=== PATIENT | male | born 1960 | race Caucasian/White ===

== ENCOUNTER 2020-12-25 09:03 | Outpatient (REF) | payer OTHER, SELFPAY ==
--- NOTE | ~2020-12-25 | XR_ITS ---
EXAMINATION: XR KNEE, RIGHT CLINICAL INFORMATION: Arthralgia COMPARISON: None TECHNIQUE: 2 views of the right knee. FINDINGS: Bone alignment is normal. No fracture or dislocation is seen. There are small osteophytes at the patellofemoral joint. There is an osteophyte at the quadriceps tendon insertion to the patella. There is no joint effusion. There is question of cortical thickening or periosteal reaction of the posterior femoral shaft. This is not completely imaged. Follow-up right femur x-ray recommended. XR/XR knee RT 2V IMPRESSION: Mild arthritis at the patellofemoral joint. Question cortical thickening or periosteal reaction of the posterior femoral shaft. This is only partially imaged on the knee x-ray. Follow-up right femur x-ray recommended.
--- NOTE | ~2020-12-25 | XR_ITS ---
EXAMINATION: XR ELBOW, LEFT CLINICAL INFORMATION: Arthralgia COMPARISON: None TECHNIQUE: AP, lateral, and oblique views of the left elbow. FINDINGS: Bone alignment is normal. No fracture or dislocation is seen. There is a small osteophyte at the coronoid process. Joint spaces are otherwise normal. There is no joint effusion. Soft tissues are unremarkable. XR/XR elbow LT min 3V IMPRESSION: Small osteophyte at the coronoid process otherwise unremarkable exam.
--- NOTE | ~2020-12-25 | XR_ITS ---
EXAMINATION: XR FOOT, RIGHT CLINICAL INFORMATION: Arthralgia COMPARISON: None TECHNIQUE: AP, lateral, and oblique views of the right foot. FINDINGS: Bone alignment is normal. No fracture or dislocation is seen. There is arthrodesis of the first MTP joint with 2 screws. Joint spaces are otherwise normal. There are calcaneal spurs. Soft tissues are otherwise normal. XR/XR foot RT min 3V IMPRESSION: Postsurgical change to the first MTP joint. Calcaneal spurs.
--- NOTE | ~2020-12-25 | XR_ITS ---
EXAMINATION: BILATERAL SHOULDER X-RAY CLINICAL INFORMATION: Arthralgia COMPARISON: None TECHNIQUE: 3 views of each shoulder FINDINGS: Left: Bone alignment is normal. No fracture or dislocation is seen. The glenohumeral joint is normal. There is mild arthritis at the acromioclavicular joint. There is soft tissue calcification adjacent to the left greater tuberosity. Right: None alignment is normal. No fracture or dislocation is seen. The glenohumeral joint is normal. There is mild arthritis at the acromioclavicular joint. There are soft tissue calcifications adjacent to the greater tuberosity. There are surgical clips in the right axilla. XR/XR shoulder LT min 2V IMPRESSION: Bilateral arthritis at the acromioclavicular joints and soft tissue calcifications adjacent to the greater tuberosities suggestive of calcific tendinitis.
--- NOTE | ~2020-12-25 | XR_ITS ---
EXAMINATION: BILATERAL SHOULDER X-RAY CLINICAL INFORMATION: Arthralgia COMPARISON: None TECHNIQUE: 3 views of each shoulder FINDINGS: Left: Bone alignment is normal. No fracture or dislocation is seen. The glenohumeral joint is normal. There is mild arthritis at the acromioclavicular joint. There is soft tissue calcification adjacent to the left greater tuberosity. Right: None alignment is normal. No fracture or dislocation is seen. The glenohumeral joint is normal. There is mild arthritis at the acromioclavicular joint. There are soft tissue calcifications adjacent to the greater tuberosity. There are surgical clips in the right axilla. XR/XR shoulder RT min 2V IMPRESSION: Bilateral arthritis at the acromioclavicular joints and soft tissue calcifications adjacent to the greater tuberosities suggestive of calcific tendinitis.
[2020-12-25 11:23] LABS: MANUAL DIFF FLAG NO
[2020-12-25 11:33] LABS: Glucose Urine UA NEG (NEG); Leukocyte Esterase Urine NEG (NEG); Nitrite Urine NEG (NEG); Specific Gravity - Urine 1.025 (1.005-1.025); Urine Blood NEG (NEG); Urine Ketones NEG (NEG); Urine Protein NEG (NEG-TRACE)
[2020-12-25 11:35] LABS: Appearance Urine CLEAR; Color Urine YELLOW
[2020-12-25 11:46] LABS: Basophils Percent Auto 0.5 % (0-2); Eosinophils Absolute Auto 0.1 X10*3/uL (0.0-0.4); Eosinophils Percent Auto 1.6 % (0-4); Hematocrit 43.5 % (42-52); Hemoglobin 14.9 g/dl (14.0-18.0); Imm Gran Abs Auto 0.03 X10*3/uL (0.00-0.03); Imm Gran Pct Auto 0.5 % (0.0-0.4); Lymphocytes Absolute Auto 1.6 X10*3/uL (1.2-4.9); Lymphocytes Percent Auto 29.2 % (20-40); Mean Corpuscular HGB Conc 34.3 g/dl (31.0-36.0); Mean Corpuscular Volume 87.7 fL (80-98); Mean Platelet Volume 11.9 fL (9.4-12.4); Monocytes Absolute Auto 0.3 X10*3/uL (0.1-1.2); Neutrophils Absolute Auto 3.4 X10*3/uL (2.0-8.3); Neutrophils Percent Auto 62.2 % (45-73); Platelet Count 141 X10*3/uL (160-400); Red Blood Count 4.96 X10*6/uL (4.60-5.80); Red Cell Distribution Width 12.6 % (11.0-16.0); White Blood Count 5.5 X10*3/uL (4.8-10.8)
[2020-12-25 11:59] LABS: RBC Urine 0 /HPF (0); WBC Urine 0-2 /HPF (0-4)
[2020-12-25 12:11] LABS: Alanine Aminotransferase 16 U/L (0-40); Albumin Level 4.3 g/dL (3.5-5.0); Alkaline Phosphatase 84 U/L (39-117); Anion Gap 13 (12-20); Aspartate Amino Transferase 15 U/L (5-37); Bilirubin Total 0.9 mg/dL (0.0-1.0); Blood Urea Nitrogen 15 mg/dL (9-16); C Reactive Protein 0.14 mg/dL (< or = 0.50); Calcium 9.4 mg/dL (8.4-10.2); Carbon Dioxide 29 mmol/L (22-29); Chloride 105 mmol/L (96-108); Cholesterol 153 mg/dL; Estimated Glomerular Filt Rate > 60; Glucose Fasting 103 mg/dL (60-99); HDL Cholesterol 41 mg/dL; LDL Cholesterol Calculated 91 mg/dl; Potassium 4.7 mmol/L (3.3-5.1); Rheumatoid Factor < 15.0 IU/mL (<15.0); Sodium 142 mmol/L (135-145); Triglycerides 107 mg/dL
[2020-12-25 12:21] LABS: Prostate Specific Antigen 2.13 ng/mL (<0.05-4.0); Thyroid Stimulating Hormone 0.92 uIU/mL (0.32-4.0); Vitamin D 25-OH Total 13.7 ng/mL (>30)
[2020-12-25 13:16] LABS: Erythrocyte Sedimentation Rate 4 MM/HR (0-15)
== END 2020-12-25 09:04 | disposition home or self-care (01) ==
LOC: HO.HMGCX 09:03
PROVIDERS: PCP Internal Medicine; Visit Provider Internal Medicine
DX: Z12.5 Encounter for screening for malignant neoplasm of prostate (principal); M25.50 Pain in unspecified joint; E55.9 Vitamin D deficiency, unspecified
CPT/HCPCS: 36415; 73030; 73080; 73560; 73630; 80053; 80061; 81001; 82306; 84153; 84443; 85025; 85652; 86140; 86431

== ENCOUNTER 2021-01-08 09:08 | Outpatient (REF) | payer OTHER, SELFPAY ==
--- NOTE | ~2021-01-08 | XR_ITS ---
EXAMINATION: XR BILATERAL KNEE STANDING XR RIGHT KNEE CLINICAL INFORMATION: Pain. COMPARISON: None. TECHNIQUE: Bilateral AP knees standing. Single sunrise view right knee. FINDINGS: Bilateral AP Knee Standing: There is reduction in the medial and lateral compartment joint space of both knees. There is below-knee amputation left lower extremity. In addition, there is medial distal femoral plate and screws from an old healed distal femoral fracture. Right Knee: Single sunrise view right knee reveals loss of patellofemoral compartment joint space with lateral patellar spurring. The soft tissues are unremarkable. XR/XR knee standing BI IMPRESSION: Mild degenerative changes tricompartment right knee with periarticular spurring in the patellofemoral compartment. Mild degenerative changes medial and lateral compartment left knee. Below-knee amputation left lower extremity. There is left distal femoral medial plate and screws from old healed fracture.
--- NOTE | ~2021-01-08 | XR_ITS ---
EXAMINATION: XR BILATERAL KNEE STANDING XR RIGHT KNEE CLINICAL INFORMATION: Pain. COMPARISON: None. TECHNIQUE: Bilateral AP knees standing. Single sunrise view right knee. FINDINGS: Bilateral AP Knee Standing: There is reduction in the medial and lateral compartment joint space of both knees. There is below-knee amputation left lower extremity. In addition, there is medial distal femoral plate and screws from an old healed distal femoral fracture. Right Knee: Single sunrise view right knee reveals loss of patellofemoral compartment joint space with lateral patellar spurring. The soft tissues are unremarkable. XR/XR knee RT 2V IMPRESSION: Mild degenerative changes tricompartment right knee with periarticular spurring in the patellofemoral compartment. Mild degenerative changes medial and lateral compartment left knee. Below-knee amputation left lower extremity. There is left distal femoral medial plate and screws from old healed fracture.
== END 2021-01-08 09:09 | disposition home or self-care (01) ==
LOC: HO.HOSX 09:08
PROVIDERS: Visit Provider Physician Assistant
DX: M17.11 Unilateral primary osteoarthritis, right knee (principal)
CPT/HCPCS: 20610; 73560; 73565; J1100

== ENCOUNTER 2021-05-11 07:11 | Day surgery (SDC) | payer OTHER, SELFPAY ==
--- NOTE | 2021-05-10 13:06 | P.CONAN_ITS ---
Documented by User: Karyn Benavides NP 05/10/21 13:06 HPI - Anesthesia Eval Consult details Narrative: 60yo M for Colonoscopy [facility], [facility] Active Problems Active Problems: All Active Problems (Updated 05/03/21 @ 15:27 by Ambar Abrams, RAMESH) Knee pain (Acute) Patellofemoral arthritis of right knee (Acute) Past Medical History Medical History (Updated 05/03/21 @ 15:27 by Ambar Abrams, RN) History of cancer History of kidney stones History of left below knee amputation Lumbar disc disease Melanoma Vitamin D deficiency Surgical History Surgical History (Updated 05/03/21 @ 15:30 by Ambar Abrams RN) H/O cervical spine surgery History of lumbar discectomy History of vasectomy Hx of colonoscopy Social History Social History (Updated 05/10/21 @ 07:35 by Ricardo Cline RN) Alcohol intake: current Alcohol intake frequency: holidays/special occasions only Patient Tobacco Use Status: Never used Tobacco Second Hand Smoke Exposure: No Use of substances other than those prescribed or required for medical reasons: No Are you DNR?: No Advance Directives: No Advance Directives Information Provided: Yes Advance Directives on File: No Current occupational status: employed Current occupation: right handed Meds Allergies Allergy/AdvReac Type Severity Reaction Status Date / Time No Known Allergies Allergy Unverified 01/08/21 10:25 Home Medications Medication Instructions Recorded Confirmed Last Taken Type albuterol sulfate 90 mcg/actuation 1 puff INHALATION Q4-6H PRN 05/03/21 05/03/21 Unknown History aerosol inhaler cholecalciferol (vitamin D3) 50 1 cap PO DAILY 05/03/21 05/03/21 Unknown History mcg (2,000 unit) capsule Exam Exam Date and Time: May 10, 2021 1306 Assessment and Plan Assessment Anesthesia Assessment: Chart Reviewed Documented by User: Bradley Jorge MD 05/11/21 08:22 [facility] Past Medical History Medical History (Updated 05/03/21 @ 15:27 by Ambar Abrams RN) History of cancer History of kidney stones History of left below knee amputation Lumbar disc disease Melanoma Vitamin D deficiency Family History Family history of problems with anesthesia: No Surgical History Surgical History (Updated 05/03/21 @ 15:30 by Ambar Abrams RN) H/O cervical spine surgery History of lumbar discectomy History of vasectomy Hx of colonoscopy History of Problems with Anesthesia: No Social History Social History (Updated 05/10/21 @ 07:35 by Ricardo Cline RN) Alcohol intake: current Alcohol intake frequency: holidays/special occasions only Patient Tobacco Use Status: Never used Tobacco Second Hand Smoke Exposure: No Use of substances other than those prescribed or required for medical reasons: No Are you DNR?: No Advance Directives: No Advance Directives Information Provided: Yes Advance Directives on File: No Current occupational status: employed Current occupation: right handed Meds Allergies Allergy/AdvReac Type Severity Reaction Status Date / Time No Known Allergies Allergy Unverified 01/08/21 10:25 Home Medications Medication Instructions Recorded Confirmed Last Taken Type albuterol sulfate 90 mcg/actuation 1 puff INHALATION Q4-6H PRN 05/03/21 05/03/21 Unknown History aerosol inhaler cholecalciferol (vitamin D3) 50 1 cap PO DAILY 05/03/21 05/03/21 Unknown History mcg (2,000 unit) capsule Exam Airway Mallampati Class: III TM Dist: >3cm Neck ROM: Full Loose/Missing/Broken Teeth: No Heart: [id number] Lungs: cta b/l Assessment and Plan Assessment Anesthesia Assessment: Anesthesia Plan Discussed and PAT Visit Final Anesthetic Review Family History of Problems with Anesthesia: No History of Problems with Anesthesia: No NPO: Yes ASA Class: II Final Preanesthetic Review: No Changes in Pt Med Stat, Meds/Allgs Chart Reviewed, Consent Obtained/Reviewed and Anes Risks/Benef Reviewed Patient Risk: Intermediate Procedure Risk: Low Assessment/Block/Sedation in SS: Assess/Block/Sedation-SS Anesthetic Plan Anesthetic Plan: MAC: and Agree w/ Assess. and Plan Disposition: Standard PACU
[2021-05-11 07:33] VITALS: BMI 26.3
[2021-05-11 07:50] VITALS: BP 154/94; PULSE 75; RESP 16; TEMP 36.4; O2SAT 97
[2021-05-11] MEDS: Lactated Ringers 1,000 ML 100 ML IVCONT (07:52)
--- NOTE | 2021-05-11 08:32 | MHC.SHP ---
Pre-Procedural Eval Section A Date of Service: 05/11/21 The patient is an INPATIENT: No Changes since office visit: No Cold of Flu in the past 2 weeks, No New Medical Problems, No Changes in Medication and No Patient answered all questions The History & Physical has been completed within 30 days and I have reviewed it.: Yes Section B Chief Complaint: screening Allergies: Allergies Allergy/AdvReac Type Severity Reaction Status Date / Time No Known Allergies Allergy Unverified 01/08/21 10:25 Plan I have reviewed the history and physical and performed a pertinent physical examination on my patient. No changes have occurred unless specified.
[2021-05-11 09:01] VITALS: BP 109/65; PULSE 70; RESP 16; TEMP 36.4; O2SAT 95
--- NOTE | 2021-05-11 09:06 | PM.OP ---
Brief Operative Note Date of Service: 05/11/21 Pre-op diagnosis: screening Post-op diagnosis: same (colon polyp) Procedure: colonoscopy Surgeon: Jim Villegas Anesthesia: MAC Was an Kick Plate Installer used for this Procedure?: No Estimated blood loss (mL): 2 Pathology: other (ppolyp 80cm) Condition: stable Disposition: PACU
[2021-05-11 09:16] VITALS: BP 108/75; PULSE 63; RESP 18; O2SAT 96
[2021-05-11 09:31] VITALS: BP 128/87; PULSE 69; RESP 18; TEMP 36.4; O2SAT 99
--- NOTE | 2021-05-11 09:34 | OP_ITS ---
SURGEON: Jim Villegas MD INDICATIONS: Colon cancer screening and prior history of tubular adenomas. PREOPERATIVE DIAGNOSIS: POSTOPERATIVE DIAGNOSIS: PROCEDURE PERFORMED: Colonoscopy to the terminal ileum with snare polypectomy and biopsy. ESTIMATED BLOOD LOSS: COMPLICATIONS: ANESTHESIA: ASSISTANTS: SPECIMENS: MEDICATIONS: Monitored anesthesia care. DESCRIPTION OF PROCEDURE: History and physical performed. The risks and benefits of the procedure were explained to the patient. Informed consent was obtained. The patient was placed in the left lateral decubitus position. A digital rectal exam was performed and was found to be normal. The Olympus pediatric video colonoscope was introduced into the rectum and advanced to the cecum without difficulty. The cecum was identified by transillumination, palpation, and identification of the ileocecal valve. Examination was performed and the scope was removed. He tolerated the procedure well and was taken to recovery area in stable condition. FINDINGS: The terminal ileum was examined and appeared normal. The visualized colonic mucosa was normal. The quality of the prep was good. At 80 cm from the anal verge, was a 6 mm polyp, which was removed with a cold snare and biopsy forceps. No other polyps were identified. The retroflexed examination showed internal hemorrhoids. IMPRESSION: Colon polyp. RECOMMENDATION: Follow up the biopsy results. MD NEELIMA Urbina/CARMELL / [id number]
== END 2021-05-11 09:53 | disposition home or self-care (01) ==
PROVIDERS: PCP Internal Medicine; Visit Provider Internal Medicine Gastroenterology
PROC: 0DJD8ZZ Inspection of Lower Intestinal Tract, Via Natural or Artificial Opening Endoscopic (ICD-10-PCS; CPT 45378; principal; 2021-05-11 08:30)
DX: Z12.11 Encounter for screening for malignant neoplasm of colon (principal); D12.6 Benign neoplasm of colon, unspecified; K64.8 Other hemorrhoids; Z86.010 Personal history of colon polyps
CPT/HCPCS: 45385; 88305

== ENCOUNTER 2023-01-09 07:47 | Outpatient (REF) | payer OTHER, SELFPAY ==
[2023-01-09 11:23] LABS: MANUAL DIFF FLAG NO
[2023-01-09 11:38] LABS: Basophils Percent Auto 0.4 % (0-2); Eosinophils Absolute Auto 0.1 X10*3/uL (0.0-0.4); Eosinophils Percent Auto 1.8 % (0-4); Hematocrit 44.3 % (42.0-52.0); Hemoglobin 15.5 g/dl (14.0-18.0); Imm Gran Abs Auto 0.04 X10*3/uL (0.00-0.03); Imm Gran Pct Auto 0.7 % (0.0-0.4); Lymphocytes Absolute Auto 1.7 X10*3/uL (1.2-4.9); Lymphocytes Percent Auto 30.8 % (20-40); Mean Corpuscular Hemoglobin 30.3 pg (27.0-33.0); Mean Corpuscular Volume 86.5 fL (80.0-98.0); Mean Platelet Volume 11.6 fL (9.4-12.4); Monocytes Absolute Auto 0.4 X10*3/uL (0.1-1.2); Monocytes Percent Auto 7.1 % (2-11); Neutrophils Absolute Auto 3.3 x10*3/uL (2.0-8.3); Neutrophils Percent Auto 59.2 % (45-73); Platelet Count 146 X10*3/uL (160-400); Red Blood Count 5.12 X10*6/uL (4.60-5.80); Red Cell Distribution Width 12.9 % (11.0-16.0); White Blood Count 5.5 X10*3/uL (4.8-10.8)
[2023-01-09 12:10] LABS: Alanine Aminotransferase 15 U/L (0-40); Albumin Level 4.2 g/dL (3.5-5.0); Alkaline Phosphatase 78 U/L (39-117); Anion Gap 9 (12-20); Aspartate Amino Transferase 14 U/L (5-37); Bilirubin Total 1.3 mg/dL (0.0-1.0); Blood Urea Nitrogen 18 mg/dL (9-16); Calcium 9.2 mg/dL (8.4-10.2); Carbon Dioxide 29 mmol/L (22-29); Chloride 106 mmol/L (96-108); Cholesterol 152 mg/dL; Estimated Glomerular Filt Rate > 60; Glucose Fasting 106 mg/dL (60-99); HDL Cholesterol 41 mg/dL; LDL Cholesterol Calculated 89 mg/dl; Potassium 4.4 mmol/L (3.3-5.1); Sodium 140 mmol/L (135-145); Total Protein 6.8 g/dL (6.5-8.0); Triglycerides 114 mg/dL
[2023-01-09 12:29] LABS: PSA,Total (Free>4and<10) 2.36 ng/mL (0.00-4.00); Vitamin D 25-OH Total 20.8 ng/mL (>30)
== END 2023-01-09 07:48 | disposition home or self-care (01) ==
LOC: HO.HMGCLDS 07:47
PROVIDERS: PCP Internal Medicine; Visit Provider Internal Medicine
DX: Z00.00 Encounter for general adult medical examination without abnormal findings (principal); Z12.5 Encounter for screening for malignant neoplasm of prostate; S88.112D Complete traumatic amputation at level between knee and ankle, left lower leg, subsequent encounter; E55.9 Vitamin D deficiency, unspecified; G54.6 Phantom limb syndrome with pain
CPT/HCPCS: 36415; 80053; 80061; 82306; 84153; 84443; 85025

== ENCOUNTER 2023-10-06 14:22 | Outpatient (AMB) | payer OTHER, SELFPAY ==
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
[2023-10-06 14:36] VITALS: BP 132/82; PULSE 80; RESP 16; O2SAT 96; BMI 28.5
== END 2023-10-06 15:00 | disposition home or self-care (01) ==
PROVIDERS: PCP Internal Medicine; Visit Provider Anesthesiology
DX: G54.6 Phantom limb syndrome with pain (principal); G89.4 Chronic pain syndrome
CPT/HCPCS: 99203

== ENCOUNTER → 2023-10-06 14:22 | Outpatient (BNVA) | payer OTHER, SELFPAY | PROVIDERS: PCP Internal Medicine; Visit Provider Anesthesiology ==

== ENCOUNTER 2023-12-10 11:45 | Outpatient (AMB) | payer OTHER, SELFPAY ==
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
[2023-12-10 12:03] VITALS: BP 138/88; PULSE 82; RESP 18; O2SAT 96; BMI 28.8
== END 2023-12-10 12:08 | disposition home or self-care (01) ==
PROVIDERS: PCP Internal Medicine; Visit Provider Anesthesiology
DX: G54.6 Phantom limb syndrome with pain (principal); G89.4 Chronic pain syndrome
CPT/HCPCS: 99213

== ENCOUNTER → 2023-12-10 11:45 | Outpatient (BNVA) | payer OTHER, SELFPAY | PROVIDERS: PCP Internal Medicine; Visit Provider Anesthesiology ==

== ENCOUNTER → 2024-02-05 12:52 | Outpatient (BNVA) | payer OTHER, SELFPAY | PROVIDERS: PCP Internal Medicine; Visit Provider Orthopaedic Surgery ==

== ENCOUNTER 2024-06-28 07:15 | Outpatient (REF) | payer OTHER, SELFPAY ==
[2024-06-28 10:00] LABS: MANUAL DIFF FLAG NO
[2024-06-28 10:06] LABS: Appearance Urine Turbid; Color Urine Yellow; Glucose Urine UA Negative (Negative); Leukocyte Esterase Urine Negative (Negative); Nitrite Urine Negative (Negative); PH 5.5 (5.0-9.0); Specific Gravity - Urine >= 1.030 (1.005-1.025); Urine Blood Negative (Negative); Urine Ketones Negative (Negative); Urine Protein Trace mg/dL (Neg-Trace)
[2024-06-28 10:11] LABS: Basophils Percent Auto 0.7 % (0-2); Eosinophils Absolute Auto 0.1 X10*3/uL (0.0-0.4); Eosinophils Percent Auto 1.6 % (0-4); Hematocrit 44.2 % (42.0-52.0); Hemoglobin 15.5 g/dl (14.0-18.0); Imm Gran Abs Auto 0.06 X10*3/uL (0.00-0.03); Imm Gran Pct Auto 1.1 % (0.0-0.4); Lymphocytes Absolute Auto 1.5 X10*3/uL (1.2-4.9); Lymphocytes Percent Auto 27.5 % (20-40); Mean Corpuscular HGB Conc 35.1 g/dl (31.0-36.0); Mean Corpuscular Hemoglobin 30.6 pg (27.0-33.0); Mean Corpuscular Volume 87.4 fL (80.0-98.0); Mean Platelet Volume 11.9 fL (9.4-12.4); Monocytes Absolute Auto 0.4 X10*3/uL (0.1-1.2); Monocytes Percent Auto 6.6 % (2-11); Neutrophils Absolute Auto 3.5 x10*3/uL (2.0-8.3); Neutrophils Percent Auto 62.5 % (45-73); Platelet Count 140 X10*3/uL (160-400); Red Blood Count 5.06 X10*6/uL (4.60-5.80); Red Cell Distribution Width 13.2 % (11.0-16.0); White Blood Count 5.6 X10*3/uL (4.8-10.8)
[2024-06-28 10:12] LABS: Bacteria Urine None Seen (None Seen); Hyaline Casts Urine 0-2 /LPF (0-2); RBC Urine 0-2 /HPF (0-2); Squamous Epithelial Cell Urine 0-2 /HPF (0-2); WBC Urine 0-5 /HPF (0-5)
[2024-06-28 10:29] LABS: Alanine Aminotransferase 16 U/L (0-40); Albumin Level 4.2 g/dL (3.5-5.0); Alkaline Phosphatase 81 U/L (39-117); Anion Gap 9 (12-20); Aspartate Amino Transferase 20 U/L (5-37); Bilirubin Total 0.9 mg/dL (0.0-1.0); Blood Urea Nitrogen 15 mg/dL (9-16); Calcium 9.1 mg/dL (8.4-10.2); Carbon Dioxide 29 mmol/L (22-29); Chloride 106 mmol/L (96-108); Cholesterol 155 mg/dL (<200); Estimated Glomerular Filt Rate > 60; Glucose Fasting 109 mg/dL (60-99); HDL Cholesterol 43 mg/dL (>40); LDL Cholesterol Calculated 92 mg/dL (<100); Potassium 4.1 mmol/L (3.3-5.1); Sodium 140 mmol/L (135-145); Triglycerides 102 mg/dL (<150)
[2024-06-28 10:40] LABS: PSA,Total (Free>4and<10) 2.36 ng/mL (0.00-4.00)
[2024-06-28 10:45] LABS: Thyroid Stimulating Hormone 1.71 uIU/mL (0.32-4.0); Vitamin D 25-OH Total 30.1 ng/mL (>30)
== END 2024-06-28 07:16 | disposition home or self-care (01) ==
LOC: HO.HMGCLDS 07:15
PROVIDERS: PCP Internal Medicine; Visit Provider Internal Medicine
DX: Z00.00 Encounter for general adult medical examination without abnormal findings (principal); S88.112D Complete traumatic amputation at level between knee and ankle, left lower leg, subsequent encounter; G54.6 Phantom limb syndrome with pain; E55.9 Vitamin D deficiency, unspecified; Z12.5 Encounter for screening for malignant neoplasm of prostate
CPT/HCPCS: 36415; 80053; 80061; 81001; 82306; 84153; 84443; 85025

== ENCOUNTER 2024-10-16 08:38 | Outpatient (REF) | payer OTHER, SELFPAY ==
--- NOTE | ~2024-10-16 | XR_ITS ---
EXAMINATION: XR CHEST CLINICAL INFORMATION: R05.9 - Cough, unspecified COMPARISON: None available. TECHNIQUE: 2 views of the chest were obtained. FINDINGS: Pulmonary reticular pattern. Prominence of the interstitial lung markings. No pleural effusion. No pneumothorax. No hyperinflation. Cardiomediastinal silhouette size is normal. Multilevel thoracic spondylosis. Degenerative changes in the shoulders. XR/XR chest 2V IMPRESSION: Concerning acute small airway inflammatory disease in the correct clinical settings. Electronically signed by: Jon Stevens MD 10/19/2024 09:28 AM EST
[2024-10-16 09:52] LABS: Influenza A PCR POSITIVE (Negative); Influenza B PCR NEGATIVE (Negative); Resp Syncy Virus RNA Qual PCR NEGATIVE (Negative); SARS COV2 PCR INHOUSE NEGATIVE (Negative)
== END 2024-10-16 08:39 | disposition home or self-care (01) ==
LOC: HO.XRAY 08:38
PROVIDERS: PCP Internal Medicine; Visit Provider Physician Assistant Medical
DX: R05.9 Cough, unspecified (principal); J06.9 Acute upper respiratory infection, unspecified
CPT/HCPCS: 0241U; 71046

== ENCOUNTER → 2024-10-16 08:48 | Outpatient (BNV) | payer OTHER, SELFPAY | PROVIDERS: PCP Internal Medicine; Visit Provider Radiology Diagnostic Radiology | DX: R05.9 Cough, unspecified (principal) | CPT/HCPCS: 71046 ==

== ENCOUNTER 2024-10-26 13:22 | Outpatient (AMB) | payer OTHER, SELFPAY ==
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
[2024-10-26 13:39] VITALS: BP 152/72; PULSE 77; TEMP 36.2; O2SAT 97; BMI 29.2
--- OUTSIDE RECORDS SUMMARY | 2024-10-26 16:25 | XMS_ITS ---
Author Organization Ignacio Figueroa DO [facility] Address [address], [place] [id number] Care Team Providers Care Electromatic Typist Name Role Phone Ignacio Figueroa Primary Care Provider [phone] REASON FOR VISIT Message MEDICATIONS Medication SIG (Take, Route, Frequency, Duration) Notes Start Date End Date Status HYDROcodone-Acetaminophen 5-325 MG 1 tablet as needed Orally every 4 hrs for 10 days 07/28/2024 Active Encounters Encounter Location Date Provider Diagnosis Ignacio Figueroa DO, [address] [phone] 07/28/2024 Ignacio Figueroa Phantom pain G54.6 ASSESSMENTS Encounter Date Diagnosis Assessment Notes Treatment Notes Treatment Clinical Notes 07/28/2024 Phantom pain (ICD-10 - G54.6) PLAN OF TREATMENT Medication Medication Name Sig Start Date Stop Date Notes HYDROcodone-Acetaminophen 5- 325 MG 1 tablet as needed Orally every 4 hrs for 10 days 07/28/2024
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
--- OUTSIDE RECORDS SUMMARY | 2024-10-26 16:25 | XMS_ITS ---
Author Organization Ignacio Figueroa DO [facility] Address [address], [place] [id number] Care Team Providers Care Mechanical Adjuster Name Role Phone Ignacio Figueroa Primary Care Provider [phone] REASON FOR VISIT Refills MEDICATIONS Medication SIG (Take, Route, Frequency, Duration) Notes Start Date End Date Status Gabapentin 300 MG 2 capsules as needed Orally Twice a day for 30 days 01/15/2023 Active HYDROcodone-Acetaminophen 5-300 MG 1 tablet as needed Orally every 4 hrs for 3 days 05/25/2024 Active Encounters Encounter Location Date Provider Diagnosis Ignacio Figueroa DO, [address] [id number] 05/25/2024 Ignacio Figueroa Phantom pain G54.6 ASSESSMENTS Encounter Date Diagnosis Assessment Notes Treatment Notes Treatment Clinical Notes 05/25/2024 Phantom pain (ICD-10 - G54.6) PLAN OF TREATMENT Medication Medication Name Sig Start Date Stop Date Notes Gabapentin 300 MG 2 capsules as needed Orally Twice a day for 30 days 01/15/2023 HYDROcodone-Acetaminophen 5-300 MG 1 tablet as needed Orally every 4 hrs for 3 days 05/25/2024
== END 2024-10-26 13:59 | disposition home or self-care (01) ==
LOC: HO.HMCSH 13:22
PROVIDERS: PCP Internal Medicine; Visit Provider Internal Medicine
DX: G54.6 Phantom limb syndrome with pain (principal); I10 Essential (primary) hypertension; J06.9 Acute upper respiratory infection, unspecified

== ENCOUNTER → 2024-10-26 13:22 | Outpatient (BNVA) | payer OTHER, SELFPAY | PROVIDERS: PCP Internal Medicine; Visit Provider Internal Medicine ==

== ENCOUNTER 2024-11-11 09:09 | Outpatient (REF) | payer OTHER, SELFPAY ==
[2024-11-11 10:13] LABS: Appearance Urine Clear; Color Urine Yellow; Glucose Urine UA Negative (Negative); Leukocyte Esterase Urine Negative (Negative); Nitrite Urine Negative (Negative); Urine Blood Negative (Negative); Urine Ketones Negative (Negative); Urine Protein Negative (Neg-Trace)
[2024-11-11 10:15] LABS: Hematocrit 40.6 % (42.0-52.0); Hemoglobin 14.3 g/dl (14.0-18.0); Mean Corpuscular HGB Conc 35.2 g/dl (31.0-36.0); Mean Corpuscular Hemoglobin 30.3 pg (27.0-33.0); Mean Platelet Volume 11.1 fL (9.4-12.4); Platelet Count 128 X10*3/uL (160-400); Red Blood Count 4.72 X10*6/uL (4.60-5.80); Red Cell Distribution Width 13.2 % (11.0-16.0); White Blood Count 5.9 X10*3/uL (4.8-10.8)
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
[2024-11-11 10:41] LABS: Alanine Aminotransferase 26 U/L (0-40); Albumin Level 3.8 g/dL (3.5-5.0); Alkaline Phosphatase 75 U/L (39-117); Anion Gap 9 (12-20); Aspartate Amino Transferase 22 U/L (5-37); Bilirubin Direct 0.2 mg/dL (0.0-0.5); Bilirubin Total 0.7 mg/dL (0.0-1.0); Blood Urea Nitrogen 15 mg/dL (9-16); Calcium 8.6 mg/dL (8.4-10.2); Carbon Dioxide 27 mmol/L (22-29); Chloride 109 mmol/L (96-108); Cholesterol 169 mg/dL (<200); Estimated Glomerular Filt Rate > 60; Glucose Random 100 mg/dL (60-115); HDL Cholesterol 44 mg/dL (>40); LDL Cholesterol Calculated 98 mg/dL (<100); Sodium 141 mmol/L (135-145); Total Protein 6.9 g/dL (6.5-8.0); Triglycerides 138 mg/dL (<150)
[2024-11-11 10:45] LABS: Thyroid Stimulating Hormone 1.84 uIU/mL (0.32-4.0)
[2024-11-11 10:57] LABS: Prostate Specific Antigen Scr 2.68 ng/mL (<0.05-4.0)
== END 2024-11-11 09:10 | disposition home or self-care (01) ==
LOC: HO.HMGCLDS 09:09
PROVIDERS: PCP Internal Medicine; Visit Provider Internal Medicine
DX: Z12.5 Encounter for screening for malignant neoplasm of prostate (principal); I10 Essential (primary) hypertension
CPT/HCPCS: 36415; 80048; 80061; 80076; 81003; 84153; 84443; 85027

== ENCOUNTER 2024-11-17 09:58 | Outpatient (AMB) | payer OTHER, SELFPAY ==
--- NOTE | 2024-11-17 09:58 | MHC.PC.OV ---
Vital Signs 11/17/24 10:05 Height 6 ft 0.25 in Weight 225 lb BMI 30.3 BP 132/62 Blood Pressure Location Rt brachial Pulse 70 Pulse Source Pulse Oximeter Temp 97.0 F Pulse Oximetry (%) 96 Intake Visit Reasons: follow up Intake Note: would like to discuss PSA Allergies No Known Allergies Allergy (Verified 11/17/24 10:33) Medication List - Last Reconciled 11/17/24 by Charisma Amor PA-C albuterol sulfate 90 mcg/actuation 1 puff inhalation Q4-6H PRN cholecalciferol (vitamin D3) 1 cap PO DAILY hydrocodone-acetaminophen 5-300 mg 1 tab PO BID PRN 30 days PFSH Medical History (Updated 11/17/24 @ 10:38 by Charisma Amor PA-C) Temporary high blood pressure Cough Vitamin D deficiency History of kidney stones Lumbar disc disease Melanoma History of cancer Surgical History History of left below knee amputation History of lumbar discectomy History of vasectomy Hx of colonoscopy H/O cervical spine surgery Social History Alcohol intake: current Alcohol intake frequency: holidays/special occasions only Patient Tobacco Use Status: Never used Tobacco Second Hand Smoke Exposure: No Current occupational status: employed Current occupation: right handed Physical exam (Primary Care) Vital Signs: Last Vital Signs Temp 97.0 F 11/17/24 10:05 Pulse 70 11/17/24 10:05 BP 132/62 11/17/24 10:05 Pulse Ox 96 11/17/24 10:05 Care Plan Goal for BP management: <130/80 at goal BMI result Body Mass Index 30.3 BMI Assessment/Plan discussion: High BMI High, discussed plan: lifestyle, weight reduction, dietary, physical activity and alcohol moderation Tobacco/Smoking Status: Tobacco use Status Patient Tobacco Use Status Never used Tobacco 11/17/24 10:08 Coding Level of Care Code Est Pt Level 4 (70669) Complex EM visit Add On G2211 Diagnoses Temporary high blood pressure R03.0 Assessment & Plan Assessment & Plan (1) Temporary high blood pressure: Code(s): R03.0 - Elevated blood-pressure reading, without diagnosis of hypertension Category: Medical Plan: Blood pressures normalized today. Blood pressure was elevated due to sickness. Patient does not need to be started on blood pressure medication at this time. Patient to monitor his blood pressure and return in 6 months. Condition is stable continue to monitor Plan Plan Patient was informed and verbally consented to the use of an ambient scribe for clinic note documentation during this visit. 1. High blood pressure reading at prior visit Patient's blood pressure has normalized now that he no longer has influenza or post influenza virus. Patient will continue monitoring his blood pressure and return in 6 months for six-month follow-up. Regular monitoring and a follow-up in six months, with preparatory blood work ordered beforehand, are advised to ensure effective management. Discussion Notes During the consultation, the discussion centered around the patient's progress in managing high blood pressure reading, which had been exacerbated by an acute illness. It was acknowledged that the blood pressure had normalized since recovering from the illness. All relevant blood work was reviewed, showing normal results, and cholesterol levels remain well-controlled. I advised planning a follow-up visit in six months and suggested calling ahead for blood work orders. The patient expressed understanding of the condition and treatment plan and agreed to the future schedule for monitoring. Patient Instructions: Patient Instructions - Schedule follow-up appointment in six months. - Contact us for a blood work order before the follow-up appointment. - Monitor blood pressure regularly at home. - Maintain a healthy lifestyle and dietary habits to support blood pressure management and cholesterol levels. - Seek medical care if you experience any symptoms related to high blood pressure or any new health concerns. Scribe Plan - Not visible on output: History of Present Illness The patient is a 64-year-old male presenting with follow-up for blood pressure check. Reports 2 weeks ago he was diagnosed with the influenza and was not feeling well and his blood pressure was noted to be elevated at that time. He was sent home with prednisone and [id number]-[id number] medication. He reports he is feeling much better. He is presenting today for blood pressure check. He denies any recent fevers, dizziness, headaches, chest pain or shortness of breath or any other symptoms related to this. His blood pressure is normal at this time at 132/62. Diagnostic workups, including blood tests, have returned normal results, and the patient's cholesterol levels are well-managed. There has been no indication of persistent elevation in blood pressure post-recovery from the acute illness, and the patient remains under regular monitoring for hypertension. Physical Exam Appearance: Alert. Oriented X3. No acute distress. Head: Normal external exam. Normocephalic. Atraumatic. Eyes: Pupils are equal, round, and reactive to light. Extraocular movements intact. Conjunctiva and sclera normal. Eyelids normal. Throat: Pharynx normal. Uvula midline. Moist mucous membranes. Neck: Normal inspection. Neck supple. Full range of motion. Cardiovascular: Normal heart rate and rhythm. Respiratory: No respiratory distress. Painless inspiration. Back: Full range of motion noted. Skin: Skin warm and dry. Normal skin color. Normal skin turgor. No rashes/lesions/lacerations noted. Extremities:Extremities exhibit normal range of motion. Neuro: Oriented X 3. No motor deficit. No sensory deficit. Reflexes normal. Results - Labs: Blood work reported to be normal
[2024-11-17 10:05] VITALS: BP 132/62; PULSE 70; TEMP 36.1; O2SAT 96; BMI 30.3
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
== END 2024-11-17 10:34 | disposition home or self-care (01) ==
LOC: HO.HMCSH 09:58
PROVIDERS: PCP Internal Medicine; Visit Provider Physician Assistant Medical
DX: R03.0 Elevated blood-pressure reading, without diagnosis of hypertension (principal)

== ENCOUNTER → 2024-11-17 09:58 | Outpatient (BNVA) | payer OTHER, SELFPAY | PROVIDERS: PCP Internal Medicine; Visit Provider Physician Assistant Medical ==

== ENCOUNTER 2025-05-31 09:57 | Outpatient (AMB) | payer OTHER, SELFPAY ==
[2025-05-31 10:01] VITALS: BP 144/80; PULSE 74; RESP 16; TEMP 36.6; O2SAT 94; BMI 30.2
--- NOTE | 2025-05-31 10:01 | A.OFFPC_ITS ---
Vital Signs 05/31/25 10:01 Height 6 ft 0.25 in Weight 224 lb BMI 30.2 BP 144/80 H Respiration 16 Pulse 74 Pulse Source Pulse Oximeter Temp 97.8 F Temp Source Temporal Artery Scan Pulse Oximetry (%) 94 Oxygen Delivery Method Room Air Intake Visit Reasons: question hernia [employer] Room Service Supervisor Required: No Accompanied by: Self / Same As Patient Allergies No Known Allergies Allergy (Verified 05/31/25 10:02) Tobacco use date assessed: 05/31/25 Fall risk assessment: No Falls in past year Last assessed Fall Risk: 05/31/25 Dental Screening Dental Screen Date: 05/31/25 Did you have a dental visit in the last 12 months?: Yes Did you have a dental problem in the last 6 months where you did not have access to dental care?: No Was dental information given to patient?: Patient has dentist [facility] Medical History Temporary high blood pressure Cough Vitamin D deficiency History of kidney stones Lumbar disc disease Melanoma History of cancer Surgical History History of left below knee amputation History of lumbar discectomy History of vasectomy Hx of colonoscopy (~05/11/21) H/O cervical spine surgery Family History (Updated 05/31/25 @ 10:12 by WILLIS Guerrero) Father Prostate cancer Mother BP (high blood pressure) Social History (Updated 05/31/25 @ 10:13 by WILLIS Guerrero) Housing: House Alcohol intake: current Alcohol intake frequency: a few times a week Patient Tobacco Use Status: Never used Tobacco Second Hand Smoke Exposure: No service: No Current occupational status: employed Cognitive needs: No Hearing needs: No Vision needs: Yes (reading glasses) Questionnaire PHQ-9 Over the last 2 weeks, how often have you been bothered by any of the following problems? 1. Little interest or pleasure in doing things: not at all 2. Feeling down, depressed, or hopeless: not at all 3. Trouble falling or staying asleep, or sleeping too much: not at all 4. Feeling tired or having little energy: not at all 5. Poor appetite or overeating: not at all 6. Feeling bad about yourself - or that you are a failure or have let yourself or your family down: not at all 7. Trouble concentrating on things, such as reading the newspaper or watching television: not at all 8. Moving or speaking so slowly that other people could have noticed. Or the opposite - being so fidgety or restless that you have been moving around a lot more than usual: not at all 9. Thoughts that you would be better off or of hurting yourself in some way: not at all Total score: 0 Source: Developed by Drs. Ignacio Garcia, Flor Steen, Ben Saldaña and colleagues, with an educational nellie from [employer]. Thrive Questionnaire Date Thrive assessed: 05/31/25 I am a: Patient What is your living situation today?: I have a steady place to live Within the past 12 months, did the food you bought not last and you didn't have the money to get more?: Never true Within the past 12 months, did you worry whether your food would run out before you got money to buy more?: Never true Do you have trouble paying for medicines?: No Do you have trouble getting transportation to medical appointments?: No Do you have trouble paying your heating and electricity bill?: No Do you have trouble taking care of your child, family member or friend?: No Do you have trouble with day-to-day activities such as bathing, preparing meals, shopping, managing finances, etc.?: No Are you currently unemployed and looking for a job?: No Are you interested in more education?: No Please select the resources that you would like help with: None THRIVE Score: 0 AUDIT C Alcohol Use Questionnaire (AUDIT-C) 1. How often do you have a drink containing alcohol?: 2-3 times a week 2. How many drinks containing alcohol do you have on a typical day when you are drinking?: 1 or 2 3. How often do you have six or more drinks on one occasion?: Never Total Score: 3 LOBITO-7 AMB Questionnaire LOBITO-7 Date LOBITO - 7 assessed: 05/31/25 Feeling nervous, anxious, or on edge: 0 = Not at all Not being able to stop or control worryin = Not at all Worrying too much about different things: 0 = Not at all Trouble relaxin = Not at all Being so restless that it is hard to sit still: 0 = Not at all Becoming easily annoyed or irritable: 0 = Not at all Feeling afraid as if something awful might happen: 0 = Not at all Total LOBITO-7 score (0-4 normal; 5-9 mild; 10-14 moderate; 15-21 severe): 0 Source: Developed by Drs. Ignacio Garcia, Flor Steen, Ben Saldaña and colleagues, with an educational nellie from [employer]. Physical exam (Primary Care) Vital Signs: Last Vital Signs Temp 97.8 F 05/31/25 10:01 Pulse 74 05/31/25 10:01 Resp 16 05/31/25 10:01 BP 144/80 H 05/31/25 10:01 Pulse Ox 94 05/31/25 10:01 Oxygen Delivery Method Room Air 05/31/25 10:01 BMI result Body Mass Index 30.2 Tobacco/Smoking Status: Tobacco use Status Tobacco use date assessed 05/31/25 05/31/25 10:04 Patient Tobacco Use Status Never used Tobacco 05/31/25 10:13 PHQ-9: PHQ-9 Score PHQ-9: Total score 0 05/31/25 10:14 Thrive Assessment: Date of Thrive Assessment Date Thrive assessed 05/31/25 05/31/25 10:04 Office Procedures Flu Questionnaire Does the patient have a severe egg allergy?: No Does the patient have severe life threatening allergies?: No Does the patient have a fever or illness today?: No Has the patient ever had Guillain-Hugheston Syndrome?: No Has the patient ever had any past reaction to a flu shot?: No Immunizations Fluarix [id number] (PF) 45 mcg (15 mcg x 3)/0.5 mL IM syringe Performing Provider: Aleksandr Roche MD [facility] Documented (not given) by: WILLIS Guerrero on 05/31/25 10:15 Reason Not Given: Patient Refused Coding Level of Care Code Est Pt Level 4 (80445) Complex EM visit Add On G2211 Diagnoses 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 - Pinched nerve: Reports numbness and weakness in the left hand, affecting guitar playing, starting a week ago. Describes a knot sensation in the back. - Phantom limb pain: Long-standing issue since leg loss, with increased severity recently. Requires Vicodin for intense episodes. - Residual limb pain: Severe episodes necessitating frequent Vicodin use. Awaiting a new prosthetic leg for potential symptom relief. - Inguinal hernia: Occasionally noticeable bulge, especially with coughing or certain movements, without significant discomfort. Social History Review of Systems - Neurological: Reports numbness and weakness in the left hand for one week. - Musculoskeletal: Reports severe phantom limb pain and residual limb pain, with episodes requiring Vicodin. - Gastrointestinal: Reports occasional bulging sensation in the groin area, consistent with an inguinal hernia. Physical Exam General: Cooperative and healthy appearing Nutritional Appearance: Well nourished Orientation/consciousness: Patient oriented x3 Limitations: No limitations Head: Normal to inspection General: Appearance normal, both eyes and all related structures Neck: Normal visual inspection Chest: Normal palpation of entire chest wall Respiratory: N ormal respiratory effort Neurology: Patient oriented x3, numbness in fingers, weakness in left hand, inguinal hernia present. Results Plan - Start duloxetine 30 mg daily for nerve pain, with a follow-up in one month. - Continue Vicodin for severe pain, with a refill provided. - Use muscle relaxants or heating pads for shoulder pain. - Monitor inguinal hernia for symptom changes. Discussion Notes I discussed with the patient the initiation of duloxetine at 30 mg daily to help manage his nerve pain, explaining that it may cause a feeling of change in the body but should not affect daily activities like driving. We agreed on a follow- up in one month to evaluate the medication's effectiveness. I also advised continuing the use of Vicodin for severe pain episodes, with a refill provided. We discussed the use of muscle relaxants or heating pads for shoulder pain and the need to monitor the inguinal hernia for any changes in symptoms or discomfort. Patient Instructions - Take duloxetine 30 mg daily as prescribed. - Continue using Vicodin for severe pain episodes, as needed. - Use muscle relaxants or heating pads for shoulder pain relief. - Monitor the inguinal hernia for any changes in symptoms or discomfort. - Follow up in one month to assess the effectiveness of duloxetine. Orders: Orders Influenza [id number] Immunization Today Z23 - Encounter for immunization Medications: New duloxetine 30 mg PO DAILY 90 caps 0RF
== END 2025-05-31 10:45 | disposition home or self-care (01) ==
LOC: HO.HMCSH 09:57
PROVIDERS: PCP Internal Medicine; Visit Provider Internal Medicine
DX: G54.6 Phantom limb syndrome with pain (principal); Z23 Encounter for immunization

== ENCOUNTER → 2025-05-31 09:57 | Outpatient (BNVA) | payer OTHER, SELFPAY | PROVIDERS: PCP Internal Medicine; Visit Provider Internal Medicine | DX: G54.6 Phantom limb syndrome with pain (principal); Z28.21 Immunization not carried out because of patient refusal; Z23 Encounter for immunization | CPT/HCPCS: 90471; 96127 ==